=== PATIENT | male | born 1960 | race Caucasian/White ===

== ENCOUNTER 2017-02-15 17:12 | Inpatient (IN) | payer OTHER ==
[~2017-02-15] VITALS: Ht 177.8 cm; Wt 57.5 kg
--- NOTE | 2017-02-15 17:18 | PD ---
Physical Exam Date Seen by Provider: Feb 15, 2017 Time Seen by Provider: 17:16 Narrative 56- year old male presents with bladder cancer with mets to bones and hips. Patient is having chronic right hip pain to the point where he is unable to walk. Patient started radiation two weeks ago. Per roommate the patient has been vomiting and unable to keep anything down. He is awaiting bed placement. [facility] Medical Record Reviewed: Yes Supervised Visit with ALLYSSA: No Condition: Stable Tierney Benoit Feb 15, 2017 17:18
[2017-02-15 17:19] VITALS: BP 123/87; PULSE 117; RESP 21; TEMP 99.7; O2SAT 99
[2017-02-15 18:12] VITALS: BP 134/58; PULSE 87; RESP 16; O2SAT 100
[2017-02-15] MEDS ORDERED: SODIUM CHLOR 0.9% 1000 ML INJ 1,000 ML IV ONE (18:23)
[2017-02-15] MEDS ORDERED: SODIUM CHLOR 0.9% 1000 ML INJ 800 ML IV ONE (18:23)
[2017-02-15] MEDS ORDERED: HYDROmorphone HCL PF 1 MG/ML VIAL IV PUSH ONE (18:30)
--- NOTE | 2017-02-15 18:30 | PD ---
HPI Chief Complaint: Pain: Acute or Chronic Time Seen by Provider: 18:12 Travel History International Travel<30 days: No Contact w/Intl Traveler<30days: No Traveled to known affect area: No History of Present Illness HPI 56-year-old male with history of COPD, bladder cancer with metastases to bone, currently undergoing radiation therapy 5 days a week in [place], here for evaluation of pain. Patient is reporting right hip and lower back pain which is making it difficult for him to walk. He was noted to have an elevated temperature in triage. He has not yet received any chemotherapy. He denies cough or upper respiratory symptoms. Reports that he was receiving several prescription for pain medications, however these were recently discontinued by his radiation oncologist. [facility] Past Medical History Respiratory: Yes Social History Tobacco Use: Yes Allergies-Medications (Allergen,Severity, Reaction): Coded Allergies: No Known Allergies (Unverified , 02/15/17) Reported Meds & Prescriptions Reported Meds & Active Scripts Active No Active Prescriptions or Reported Medications Review of Systems Except as stated in HPI: all other systems reviewed are Neg Physical Exam Narrative GENERAL: Well-developed, thin, pleasant, comfortable, no apparent distress. SKIN: Focused skin assessment warm/dry. No rash. HEAD: Atraumatic. Normocephalic. EYES: Pupils equal and round. No scleral icterus. No injection or drainage. ENT: Mucous membranes pink and dry. NECK: Trachea midline. No JVD. CARDIOVASCULAR: Regular rate and rhythm. RESPIRATORY: No accessory muscle use. Clear to auscultation. Breath sounds equal bilaterally. GASTROINTESTINAL: Abdomen soft, non-tender, nondistended. MUSCULOSKELETAL: No obvious deformities. No clubbing. No cyanosis. No edema. NEUROLOGICAL: Awake and alert. No obvious cranial nerve deficits. Motor grossly within normal limits. Normal speech. PSYCHIATRIC: Appropriate mood and affect; insight and judgment normal. Data Data Last Documented VS Vital Signs Date Time Temp Pulse Resp B/P (MAP) Pulse Ox O2 Delivery O2 Flow Rate FiO2 02/15/17 19:29 97 Room Air 02/15/17 19:22 68 20 02/15/17 17:19 99.7 Orders Orders Complete Blood Count With Diff (02/15/17 18:23) Comprehensive Metabolic Panel (02/15/17 18:23) Lactic Acid Sepsis Protocol (02/15/17 18:23) Urinalysis - C+S If Indicated (02/15/17 18:23) Blood Culture (02/15/17 18:23) Chest, Single Ap (02/15/17 18:23) Ecg Monitoring (02/15/17 18:23) Iv Access Insert/Monitor (02/15/17 18:23) Oximetry (02/15/17 18:23) Sodium Chlor 0.9% 1000 Ml Inj (Ns 1000 M (02/15/17 18:23) Sodium Chlor 0.9% 1000 Ml Inj (Ns 1000 M (02/15/17 18:23) Hydromorphone Pf Inj (Dilaudid Pf Inj) (02/15/17 18:30) Pelvis, Ap Only (Routine) (02/15/17 ) Urine Culture (02/15/17 19:16) Ceftriaxone Inj (Rocephin Inj) (02/15/17 21:00) Admit Order (Ed Use Only) (02/15/17 21:23) Labs Laboratory Tests Test 02/15/17 19:16 White Blood Count 11.7 TH/MM3 Red Blood Count 3.47 MIL/MM3 Hemoglobin 10.2 GM/DL Hematocrit 32.8 % Mean Corpuscular Volume 94.4 FL Mean Corpuscular Hemoglobin 29.4 PG Mean Corpuscular Hemoglobin Concent 31.2 % Red Cell Distribution Width 17.8 % Platelet Count 240 TH/MM3 Mean Platelet Volume 9.0 FL Neutrophils (%) (Auto) 87.3 % Lymphocytes (%) (Auto) 6.9 % Monocytes (%) (Auto) 5.8 % Eosinophils (%) (Auto) 0.0 % Basophils (%) (Auto) 0.0 % Neutrophils # (Auto) 10.2 TH/MM3 Lymphocytes # (Auto) 0.8 TH/MM3 Monocytes # (Auto) 0.7 TH/MM3 Eosinophils # (Auto) 0.0 TH/MM3 Basophils # (Auto) 0.0 TH/MM3 CBC Comment AUTO DIFF Differential Total Cells Counted 100 Neutrophils % (Manual) 83 % Band Neutrophils % 5 % Lymphocytes % 8 % Monocytes % 4 % Neutrophils # (Manual) 10.3 TH/MM3 Differential Comment FINAL DIFF MANUAL Toxic Granulation 1+ Platelet Estimate NORMAL Platelet Morphology Comment NORMAL Tear Drop Cells 1+ Ovalocytes 1+ Keratocytes OCC Urine Color YELLOW Urine Turbidity CLEAR Urine pH 7.5 Urine Specific [place] 1.022 Urine Protein 30 mg/dL Urine Glucose (UA) NEG mg/dL Urine Ketones NEG mg/dL Urine Occult Blood MOD Urine Nitrite NEG Urine Bilirubin NEG Urine Urobilinogen LESS THAN 2.0 MG/DL Urine Leukocyte Esterase SMALL Urine RBC 27 /hpf Urine WBC 8 /hpf Urine Mucus FEW /lpf Microscopic Urinalysis Comment CATH-CULTURE IND Blood Urea Nitrogen 25 MG/DL Creatinine 0.70 MG/DL Random Glucose 106 MG/DL Total Protein 7.0 GM/DL Albumin 2.6 GM/DL Calcium Level 8.0 MG/DL Alkaline Phosphatase 115 U/L Aspartate Amino Transf (AST/SGOT) 60 U/L Alanine Aminotransferase (ALT/SGPT) 89 U/L Total Bilirubin 1.1 MG/DL Sodium Level 132 MEQ/L Potassium Level 4.3 MEQ/L Chloride Level 100 MEQ/L Carbon Dioxide Level 22.6 MEQ/L Anion Gap 9 MEQ/L Estimat Glomerular Filtration Rate 117 ML/MIN Lactic Acid Level 2.7 mmol/L MDM Medical Decision Making Medical Screen Exam Complete: Yes Emergency Medical Condition: Yes Differential Diagnosis Metastatic disease, sepsis, UTI, viral illness Narrative Course Vital signs show heart rate 117, blood pressure 123/87, pulse ox 99% on room air , oral temp of 99.7F. Heart rate improved to 68 after 2 L normal saline IV. CBC shows WBC 11.7, hemoglobin 10.2, hematocrit 32.8, platelets 240, neutrophils 87%, band neutrophils 5%. CMP is remarkable for sodium 132, AST 60, ALT 89. Lactic acid is 2.7. UA is suggestive of UTI. Chest x-ray: No evidence of acute cardio pulmonary disease. Pelvis x-ray: Radiographic appearance of the bony pelvis within normal limits. Patient made aware of all findings. He will be admitted for further treatment and evaluation of sepsis, UTI. Case discussed with hospitalist Dr Rudd who will admit the patient to her service. Diagnosis Primary Impression: Sepsis Qualified Codes: A41.9 - Sepsis, unspecified organism Additional Impression: UTI (urinary tract infection) Qualified Codes: N39.0 - Urinary tract infection, site not specified; R31.9 - Hematuria, unspecified Scripts No Active Prescriptions or Reported Meds Condition: Jeremy Renner MD Feb 15, 2017 18:30
[2017-02-15 18:48] VITALS: RESP 18; O2SAT 99
--- NOTE | 2017-02-15 18:52 | RADRPT ---
EXAM DATE/TIME: 02/15/2017 18:25 [facility] COMPARISON: No previous studies available for comparison. INDICATIONS : Right sided pelvic pain with no known injury MEDICAL HISTORY : Metastatic bladder cancer SURGICAL HISTORY : None. ENCOUNTER: Initial ACUITY: 1 day PAIN SCORE: 10/10 LOCATION: Right pelvis and hip FINDINGS: A single frontal view of the pelvis demonstrates no evidence of fracture. The bony pelvic ring is in tact. Bony mineralization is normal. The soft tissues are intact. No lytic or sclerotic lesions see n. CONCLUSION: Radiographic appearance of the bony pelvis within normal limits. Chaka Hearn MD on February 15, 2017 at 18:49 Board Certified Radiologist. This report was verified electronically.
--- NOTE | 2017-02-15 19:03 | RADRPT ---
EXAM DATE/TIME: 02/15/2017 18:27 [facility] COMPARISON: No previous studies available for comparison. INDICATIONS : Fever starting today MEDICAL HISTORY : Chronic obstructive pulmonary disease. Metastatic bladder cancer SURGICAL HISTORY : None. ENCOUNTER: Initial ACUITY: 1 day PAIN SCORE: 0/10 LOCATION: Bilateral chest FINDINGS: A single view of the chest demonstrates the lungs to be symmetrically aerated without evidence of mas s, infiltrate or effusion. The cardiomediastinal contours are unremarkable. Osseous structures are intact. CONCLUSION: No evidence of acute cardiopulmonary disease. Chaka Hearn MD on February 15, 2017 at 19:01 Board Certified Radiologist. This report was verified electronically.
[2017-02-15 19:22] VITALS: BP 146/74; PULSE 68; RESP 20; O2SAT 98
[2017-02-15 19:29] VITALS: O2SAT 97
[2017-02-15 19:43] LABS: AUTOMATED NEUTROPHIL # 10.2 TH/MM3 (1.8-7.7); HEMATOCRIT 32.8 % (39.0-51.0); LYMPH % 6.9 % (9.0-44.0); LYMPHOCYTE # 0.8 TH/MM3 (1.0-4.8); MEAN CELL VOLUME 94.4 FL (80.0-100.0); MEAN CORPUSCULAR HEMOGLOBIN 29.4 PG (27.0-34.0); MEAN CORPUSCULAR HGB CONC 31.2 % (32.0-36.0); MONO % 5.8 % (0.0-8.0); NEUT % 87.3 % (16.0-70.0); PLATELET COUNT 240 TH/MM3 (150-450); RED BLOOD COUNT 3.47 MIL/MM3 (4.50-5.90); RED CELL DISTRIBUTION WIDTH 17.8 % (11.6-17.2); WHITE BLOOD COUNT 11.7 TH/MM3 (4.0-11.0)
[2017-02-15 19:59] LABS: HEMO FLAGS AUTO DIFF
[2017-02-15 20:03] LABS: ANION GAP 9 MEQ/L (5-15); AST (GOT) 60 U/L (15-37); BICARBONATE 22.6 MEQ/L (21.0-32.0); BLOOD UREA NITROGEN 25 MG/DL (7-18); CHLORIDE 100 MEQ/L (98-107); GLOMERULAR FILTRATION RATE 117 ML/MIN (>89); POTASSIUM 4.3 MEQ/L (3.5-5.1); SODIUM (NA) 132 MEQ/L (136-145)
[2017-02-15 20:04] LABS: ALT (GPT) 89 U/L (12-78)
[2017-02-15 20:06] LABS: ALKALINE PHOSPHATASE 115 U/L (45-117); TOTAL BILIRUBIN ADULT 1.1 MG/DL (0.2-1.0)
[2017-02-15 20:18] LABS: BLOOD, URINE MOD (NEG); GLUCOSE,URINE NEG (NEG); KETONE, URINE NEG (NEG); MUCUS URINE FEW /lpf (OCC); NITRITE,URINE NEG (NEG); PH, URINE 7.5 (5.0-8.5); URINE COLOR YELLOW (YELLW/STRAW)
[2017-02-15 20:24] LABS: COMMENT (UR) CATH-CULTURE IND; CULTURE IF INDICATED CATH CULTURE IND
[2017-02-15 20:50] LABS: BANDS 5 % (0-6); NEUTROPHIL # MANUAL DIFF 10.3 TH/MM3 (1.8-7.7); PLATELET ESTIMATE SMEAR NORMAL (NORMAL); PLATELET MORPHOLOGY NORMAL (NORMAL); POLYS (SEG NEUTROPHILS) 83 % (16-70); WBC DIFF SAMPLE 100
[2017-02-15 20:52] LABS: KERATOCYTES OCC (NORMAL); SCAN/DIFF FINAL DIFF MANUAL; TOXIC GRANULATION 1+ (NORMAL)
[2017-02-15 20:55] LABS: OVALOCYTES 1+ (NORMAL); TEARDROP RBCS 1+ (NORMAL)
[2017-02-15] MEDS ORDERED: cefTRIAXone INJ 1,000 MG in SODIUM CHLORIDE 0.9% INJ 100 ML IV ONE (21:00)
[2017-02-15 21:38] LABS: LACTIC ACID GHOST NOT REPORTABLE
[2017-02-15] MEDS ORDERED: BISACODYL 10 MG SUPP RECTAL PRN (21:45)
[2017-02-15] MEDS ORDERED: LACTULOSE SYRUP 20 GM/30 ML CUP PO PRN (21:45)
[2017-02-15] MEDS ORDERED: SENNOSIDES 8.6 MG TAB PO PRN (21:45)
[2017-02-15] MEDS ORDERED: ACETAMINOPHEN 325 MG TAB PO PRN (21:45)
[2017-02-15] MEDS ORDERED: ONDANSETRON HCL 4 MG/2 ML VIAL IVP PRN (21:45)
[2017-02-15] MEDS ORDERED: SODIUM CHLORIDE 0.9% FLUSH 10 ML FLUSH IV FLUSH PRN (21:45)
[2017-02-15] MEDS ORDERED: MAGNESIUM HYDROXIDE SUSP 30 ML CUP PO PRN (21:45)
--- NOTE | 2017-02-15 21:48 | HHI.HP ---
[facility] No Primary Care Physician Admission Diagnosis Sepsis, UTI Diagnoses: (1) Sepsis Diagnosis: Principal (2) UTI (urinary tract infection) Diagnosis: Principal (3) Bladder cancer Diagnosis: Principal (4) Hip pain, right Diagnosis: Principal (5) Tobacco abuse Diagnosis: Principal Travel History International Travel<30 Days: No Contact w/Intl Traveler <30 Da: No Traveled to Known Affected Are: No History of Present Illness This is a 56-year-old male with PMH of Metastatic Bladder CA, Tobacco Abuse and COPD who presented to the ER with complaints of hip pain in addition to persistent episodes of nausea and vomiting. Pt recently started Radiation Therapy 2wks ago, states symptoms have been getting progressively worse since then. Reports subjective fevers, chills. On arrival, BP 123/87, HR 117, O2 sat 99% on RA, Temp 99.7. WBC 11.7. BUN 25. Lactic Acid 2.7. UA positive for UTI. CXR with no acute findings. Pelvis X-ray normal. S/p Blood/Urine Cultures and IV Rocephin in ER. Review of Systems Except as stated in HPI: all other systems reviewed are Neg ROS: 14 point review of systems otherwise negative. Past Family Social History Past Medical History PMH: Metastatic Bladder CA, Tobacco Abuse and COPD Past Surgical History PAST SURGICAL HISTORY: Hernia Repair, Bladder Surgery, Jaw Surgery Allergies: Coded Allergies: No Known Allergies (Unverified , 02/15/17) Family History PAST FAMILY HISTORY: Reviewed. No h/o DM or CAD Social History PAST SOCIAL HISTORY: Negative for alcohol or drugs. Smokes 1ppd. Physical Exam Vital Signs Vital Signs Date Time Temp Pulse Resp B/P (MAP) Pulse Ox O2 Delivery O2 Flow Rate FiO2 02/15/17 19:29 97 Room Air 02/15/17 19:22 68 20 146/74 (98) 98 Room Air 02/15/17 18:49 74 18 02/15/17 18:48 18 99 Room Air 02/15/17 18:12 87 16 134/58 (83) 100 Room Air 02/15/17 17:19 99.7 117 21 123/87 (72) 99 Physical Exam PE: GENERAL: Middle-aged male in no acute distress. HEENT: PERRLA, EOMI. No scleral icterus or conjunctival pallor. No lid lag or facial droop. CARDIOVASCULAR: Regular rate and rhythm. No obvious murmurs to auscultation. No chest tenderness to palpation. RESPIRATORY: No obvious rhonchi or wheezing. Clear to auscultation. Breath sounds equal bilaterally. GASTROINTESTINAL: Abdomen soft, non-tender, nondistended. BS normal. MUSCULOSKELETAL: Extremities without clubbing, cyanosis, or edema. No obvious deformities. NEUROLOGICAL: Awake, alert and oriented x4. No focal neurologic deficits. Moving both upper and lower extremities spontaneously. Laboratory Laboratory Tests Test 02/15/17 19:16 White Blood Count 11.7 Red Blood Count 3.47 Hemoglobin 10.2 Hematocrit 32.8 Mean Corpuscular Volume 94.4 Mean Corpuscular Hemoglobin 29.4 Mean Corpuscular Hemoglobin Concent 31.2 Red Cell Distribution Width 17.8 Platelet Count 240 Mean Platelet Volume 9.0 Neutrophils (%) (Auto) 87.3 Lymphocytes (%) (Auto) 6.9 Monocytes (%) (Auto) 5.8 Eosinophils (%) (Auto) 0.0 Basophils (%) (Auto) 0.0 Neutrophils # (Auto) 10.2 Lymphocytes # (Auto) 0.8 Monocytes # (Auto) 0.7 Eosinophils # (Auto) 0.0 Basophils # (Auto) 0.0 CBC Comment AUTO DIFF Differential Total Cells Counted 100 Neutrophils % (Manual) 83 Band Neutrophils % 5 Lymphocytes % 8 Monocytes % 4 Neutrophils # (Manual) 10.3 Differential Comment FINAL DIFF MANUAL Toxic Granulation 1+ Platelet Estimate NORMAL Platelet Morphology Comment NORMAL Tear Drop Cells 1+ Ovalocytes 1+ Keratocytes OCC Urine Color YELLOW Urine Turbidity CLEAR Urine pH 7.5 Urine Specific [place] 1.022 Urine Protein 30 Urine Glucose (UA) NEG Urine Ketones NEG Urine Occult Blood MOD Urine Nitrite NEG Urine Bilirubin NEG Urine Urobilinogen LESS THAN 2.0 Urine Leukocyte Esterase SMALL Urine RBC 27 Urine WBC 8 Urine Mucus FEW Microscopic Urinalysis Comment CATH-CULTURE IND Blood Urea Nitrogen 25 Creatinine 0.70 Random Glucose 106 Total Protein 7.0 Albumin 2.6 Calcium Level 8.0 Alkaline Phosphatase 115 Aspartate Amino Transf (AST/SGOT) 60 Alanine Aminotransferase (ALT/SGPT) 89 Total Bilirubin 1.1 Sodium Level 132 Potassium Level 4.3 Chloride Level 100 Carbon Dioxide Level 22.6 Anion Gap 9 Estimat Glomerular Filtration Rate 117 Lactic Acid Level 2.7 Date/Time Source Procedure Growth Status 02/15/17 19:20 Blood Peripheral Aerobic Blood Culture Pending Received 02/15/17 19:20 Blood Peripheral Anaerobic Blood Culture Pending Received 02/15/17 19:16 Urine Clean Catch Urine Culture Pending Received Result Diagram: 02/15/17191502/15/171915 Caprini VTE Risk Assessment Caprini VTE Risk Assessment: Mod/High Risk (score >= 2) Caprini Risk Assessment Model Point Value = 1 Point Value = 2 Point Value = 3 Point Value = 5 Age 41-60 Minor surgery BMI > 25 kg/m2 Swollen legs Varicose veins or History of unexplained or recurrent spontaneous Oral contraceptives or hormone replacement Sepsis (< 1 month) Serious lung disease, including pneumonia (< 1 month) Abnormal pulmonary function Acute myocardial infarction Congestive heart failure (< 1 month) History of inflammatory bowel disease Medical patient at bed rest Age 61-74 Arthroscopic surgery Major open surgery (> 45 min) Laparoscopic surgery (> 45 min) Malignancy Confined to bed (> 72 hours) Immobilizing plaster cast Central venous access Age >= 75 History of VTE Family history of VTE Factor V Leiden Prothrombin [id number] Lupus anticoagulant Anticardiolipin antibodies Elevated serum homocysteine Heparin-induced thrombocytopenia Other congenital or acquired thrombophilia Stroke (< 1 month) Elective arthroplasty Hip, pelvis, or leg fracture Acute spinal cord injury (< 1 month) Prophylaxis Regimen Total Risk Factor Score Risk Level Prophylaxis Regimen 0-1 Low Early ambulation 2 Moderate Order ONE of the following: *Sequential Compression Device (SCD) *Heparin 5000 units SQ BID 3-4 Higher Order ONE of the following medications: *Heparin 5000 units SQ TID *Enoxaparin/Lovenox 40 mg SQ daily (WT < 150 kg, CrCl > 30 mL/min) *Enoxaparin/Lovenox 30 mg SQ daily (WT < 150 kg, CrCl > 10-29 mL/min) *Enoxaparin/Lovenox 30 mg SQ BID (WT < 150 kg, CrCl > 30 mL/min) AND/OR *Sequential Compression Device (SCD) 5 or more Highest Order ONE of the following medications: *Heparin 5000 units SQ TID (Preferred with Epidurals) *Enoxaparin/Lovenox 40 mg SQ daily (WT < 150 kg, CrCl > 30 mL/min) *Enoxaparin/Lovenox 30 mg SQ daily (WT < 150 kg, CrCl > 10-29 mL/min) *Enoxaparin/Lovenox 30 mg SQ BID (WT < 150 kg, CrCl > 30 mL/min) AND *Sequential Compression Device (SCD) Assessment and Plan Problem List: (1) Sepsis ICD Code: A41.9 - Sepsis, unspecified organism Status: Acute (2) UTI (urinary tract infection) ICD Code: N39.0 - Urinary tract infection, site not specified Status: Acute (3) Bladder cancer ICD Code: C67.9 - Malignant neoplasm of bladder, unspecified (4) Hip pain, right ICD Code: M25.551 - Pain in right hip (5) Tobacco abuse ICD Code: Z72.0 - Tobacco use Assessment and Plan A/P: 1. Sepsis: Temp 99.7, HR 112, Lactic Acid 2.7, WBC 11.7, Source-UTI. S/p Blood/Urine Cultures, IV Rocephin in ER. Follow up cultures, continue IV Abx. Repeat Lactate 1.4. CXR w/ no acute findings, images reviewed by me. 2. UTI: U/a w/ UTI. Follow up cultures, continue w/ treatment as above. 3. Bladder CA: currently undergoing Radiation in [place], started 2wks ago , progressive weakness/deconditioning. Follow up w/ Oncology as scheduled. 4. Right Hip Pain: progressive Right Hip Pain x2 wks, roommate reports decreased mobility due to pain. X-ray w/ no acute findings, images reviewed by me. Analgesics as needed, PT for eval/tx. 5. Tobacco Abuse: Pt counselled. Ativan/NicoDerm prn if needed. 6. DVT Prophylaxis: SCD/Teds. 7. Social work for d/c planning as needed. 8. Case discussed w/ ER physician at length. Physician Certification 2 Midnight Certification Type: Admission for Inpatient Services Order for Inpatient Services The services are ordered in accordance with Medicare regulations or non- Medicare payer requirements, as applicable. In the case of services not specified as inpatient-only, they are appropriately provided as inpatient services in accordance with the 2-midnight benchmark. Estimated LOS (days): 2 days is the estimated time the patient will need to remain in the hospital, assuming treatment plan goals are met and no additional complications. Post-Hospital Plan: Not yet determined Problem Qualifiers (1) Sepsis: Qualified Codes: A41.9 - Sepsis, unspecified organism (2) UTI (urinary tract infection): Qualified Codes: N39.0 - Urinary tract infection, site not specified; R31.9 - Hematuria, unspecified Tiffany Rudd MD Feb 15, 2017 21:48
[2017-02-15 21:53] VITALS: BP 146/71; PULSE 66; RESP 20; O2SAT 97
[2017-02-15] MEDS: SODIUM CHLOR 0.9% 1000 ML INJ 1,000 ML IV SCH (23:31)
[2017-02-16] VITALS (8 sets, daily range): BP systolic 124–141; BP diastolic 64–79; PULSE 67–81; RESP 17–20; TEMP 96.3–98.6; O2SAT 96–99
[2017-02-16] MEDS ORDERED: LORazepam 0.5 MG TAB PO ONE (03:00)
[2017-02-16 07:01] LABS: AUTOMATED NEUTROPHIL # 7.9 TH/MM3 (1.8-7.7); HEMATOCRIT 30.2 % (39.0-51.0); HEMO FLAGS DIFF FINAL; LYMPH % 7.3 % (9.0-44.0); LYMPHOCYTE # 0.7 TH/MM3 (1.0-4.8); MEAN CORPUSCULAR HEMOGLOBIN 30.1 PG (27.0-34.0); MEAN CORPUSCULAR HGB CONC 31.4 % (32.0-36.0); NEUT % 88.7 % (16.0-70.0); PLATELET COUNT 214 TH/MM3 (150-450); RED BLOOD COUNT 3.15 MIL/MM3 (4.50-5.90); RED CELL DISTRIBUTION WIDTH 18.3 % (11.6-17.2); WHITE BLOOD COUNT 8.9 TH/MM3 (4.0-11.0)
[2017-02-16 07:09] LABS: ALT (GPT) 83 U/L (12-78); ANION GAP 11 MEQ/L (5-15); AST (GOT) 64 U/L (15-37); BLOOD UREA NITROGEN 18 MG/DL (7-18); CHLORIDE 102 MEQ/L (98-107); GLOMERULAR FILTRATION RATE 155 ML/MIN (>89); SODIUM (NA) 135 MEQ/L (136-145)
[2017-02-16 07:11] LABS: ALKALINE PHOSPHATASE 108 U/L (45-117)
[2017-02-16] MEDS: SODIUM CHLORIDE 0.9% FLUSH 10 ML FLUSH IV FLUSH SCH ×2 (09:00→19:57)
[2017-02-16] MEDS: DOCUSATE SODIUM 50 MG/SENNA 8.6 MG TAB PO SCH ×2 (09:00→19:55)
--- NOTE | 2017-02-16 09:06 | HHI.PR ---
Subjective Remarks This is a pleasant 56 y/o male with Metastatic Bladder Cancer,. Tobacco abuse, COPD who came to ER wtih Hip pain in addition to persistent episodes of nausea and Vomit, two weeks ago started Radiation therapy, reported subjective fever and chills, Lactic Acid 2.7. UA positive for UTI. CXR with no acute findings. Pelvis X-ray normal. S/p Blood/Urine Cultures and IV Rocephin in ER. 02/16: Seen in his bedroom and improving condition, but states he takes Percocet at home for pain and will need to continue his home medicines, encourage ambulation to avoid complications, also he states has Occasional hematuria. Objective Vital Signs Date Time Temp Pulse Resp B/P (MAP) Pulse Ox O2 Delivery O2 Flow Rate FiO2 02/16/17 04:35 97.8 68 17 124/64 (84) 99 02/16/17 02:45 Room Air 02/16/17 00:30 98.5 74 17 130/79 (96) 97 02/15/17 21:53 66 20 146/71 (96) 97 Room Air 02/15/17 19:29 97 Room Air 02/15/17 19:22 68 20 146/74 (98) 98 Room Air 02/15/17 18:49 74 18 02/15/17 18:48 18 99 Room Air 02/15/17 18:12 87 16 134/58 (83) 100 Room Air 02/15/17 17:19 99.7 117 21 123/87 (99) 99 I/O 02/15/17 02/15/17 02/15/17 02/16/17 02/16/17 02/16/17 07:00 15:00 23:00 07:00 15:00 23:00 Intake Total 2100 ml 240 ml Output Total 80 ml 500 ml Balance 2020 ml -260 ml Intake Oral 240 ml IV Total 2100 ml Output Urine Total 80 ml 500 ml # Voids 1 2 # Bowel Movements 1 Result Diagram: 02/16/17 0558 02/16/17 0558 Imaging Last Impressions Chest X-Ray 02/15/17 182 Signed Impressions: Service Date/Time: Wednesday, February 15, 2017 18:27 - CONCLUSION: No evidence of acute cardiopulmonary disease. Chaka Hearn MD Pelvis X-Ray 02/15/17 0000 Signed Impressions: Service Date/Time: Wednesday, February 15, 2017 18:25 - CONCLUSION: Radiographic appearance of the bony pelvis within normal limits. Chaka Hearn MD Procedures None Other Results Laboratory Tests Test 02/15/17 19:16 02/15/17 22:39 02/16/17 05:58 Differential Total Cells Counted 100 Neutrophils % (Manual) 83 % Band Neutrophils % 5 % Lymphocytes % 8 % Monocytes % 4 % Neutrophils # (Manual) 10.3 TH/MM3 Toxic Granulation 1+ Platelet Estimate NORMAL Platelet Morphology Comment NORMAL Tear Drop Cells 1+ Ovalocytes 1+ Keratocytes OCC Urine Color YELLOW Urine Turbidity CLEAR Urine pH 7.5 Urine Specific [place] 1.022 Urine Protein 30 mg/dL Urine Glucose (UA) NEG mg/dL Urine Ketones NEG mg/dL Urine Occult Blood MOD Urine Nitrite NEG Urine Bilirubin NEG Urine Urobilinogen LESS THAN 2.0 MG/DL Urine Leukocyte Esterase SMALL Urine RBC 27 /hpf Urine WBC 8 /hpf Urine Mucus FEW /lpf Microscopic Urinalysis Comment CATH-CULTURE IND Lactic Acid Level 1.4 mmol/L White Blood Count 8.9 TH/MM3 Red Blood Count 3.15 MIL/MM3 Hemoglobin 9.5 GM/DL Hematocrit 30.2 % Mean Corpuscular Volume 96.0 FL Mean Corpuscular Hemoglobin 30.1 PG Mean Corpuscular Hemoglobin Concent 31.4 % Red Cell Distribution Width 18.3 % Platelet Count 214 TH/MM3 Mean Platelet Volume 8.7 FL Neutrophils (%) (Auto) 88.7 % Lymphocytes (%) (Auto) 7.3 % Monocytes (%) (Auto) 4.0 % Eosinophils (%) (Auto) 0.0 % Basophils (%) (Auto) 0.0 % Neutrophils # (Auto) 7.9 TH/MM3 Lymphocytes # (Auto) 0.7 TH/MM3 Monocytes # (Auto) 0.4 TH/MM3 Eosinophils # (Auto) 0.0 TH/MM3 Basophils # (Auto) 0.0 TH/MM3 CBC Comment DIFF FINAL Differential Comment Blood Urea Nitrogen 18 MG/DL Creatinine 0.55 MG/DL Random Glucose 98 MG/DL Total Protein 6.6 GM/DL Albumin 2.3 GM/DL Calcium Level 7.6 MG/DL Alkaline Phosphatase 108 U/L Aspartate Amino Transf (AST/SGOT) 64 U/L Alanine Aminotransferase (ALT/SGPT) 83 U/L Total Bilirubin 1.0 MG/DL Sodium Level 135 MEQ/L Potassium Level 4.0 MEQ/L Chloride Level 102 MEQ/L Carbon Dioxide Level 22.0 MEQ/L Anion Gap 11 MEQ/L Estimat Glomerular Filtration Rate 155 ML/MIN Objective Remarks PE: Alert and oriented x 3. GENERAL: Middle-aged male in no acute distress. HEENT: PERRLA, EOMI. No scleral icterus or conjunctival pallor. No lid lag or facial droop. CARDIOVASCULAR: Regular rate and rhythm. No obvious murmurs to auscultation. No chest tenderness to palpation. RESPIRATORY: No obvious rhonchi or wheezing. Clear to auscultation. Breath sounds equal bilaterally. GASTROINTESTINAL: Abdomen soft, non-tender, nondistended. BS normal. MUSCULOSKELETAL: Extremities without clubbing, cyanosis, or edema. No obvious deformities. NEUROLOGICAL: Awake, alert and oriented x4. No focal neurologic deficits. Moving both upper and lower extremities spontaneously. Medications and IVs Current Medications Medications (Trade) Dose Ordered Sig/Leobardo Route Start Time Stop Time Status Last Admin Ceftriaxone Sodium 1000 mg/ Sodium Chloride 100 ml @ 200 mls/hr Q24H IV 02/16/17 21:00 Sodium Chloride 1,000 ml @ 100 mls/hr Q10H IV 02/15/17 22:00 02/15/17 23:31 (NS Flush) 2 ml UNSCH PRN IV FLUSH 02/15/17 21:45 (NS Flush) 2 ml BID IV FLUSH 02/16/17 09:00 (Zofran Inj) 4 mg Q6H PRN IVP 02/15/17 21:45 (Tylenol) 650 mg Q6H PRN PO 02/15/17 21:45 (Tebbetts 5-325 Mg) 1 tab Q4H PRN PO 02/15/17 21:45 (Morphine Inj) 2 mg Q3H PRN IV 02/15/17 21:45 (Lizz-Colace) 1 tab BID PO 02/16/17 09:00 (Milk Of Magnesia Liq) 30 ml Q12H PRN PO 02/15/17 21:45 (Senokot) 17.2 mg Q12H PRN PO 02/15/17 21:45 (Dulcolax Supp) 10 mg DAILY PRN RECTAL 02/15/17 21:45 (Lactulose Liq) 30 ml DAILY PRN PO 02/15/17 21:45 A/P Assessment and Plan 1. Sepsis: Temp 99.7, HR 112, Lactic Acid 2.7, WBC 11.7, Source-UTI. S/p Blood/Urine Cultures, IV Rocephin in ER. Follow up cultures, continue IV Abx. Repeat Lactate 1.4. CXR w/ no acute findings. Leukocytosis improving from 11.7 to 8.9 2. UTI: U/a w/ UTI. Follow up cultures, continue w/ treatment as above. 3. Bladder CA: currently undergoing Radiation in [place], started 2wks ago , progressive weakness/deconditioning. Follow up w/ Oncology as scheduled. 4. Right Hip Pain: progressive Right Hip Pain x2 wks, roommate reports decreased mobility due to pain. X-ray w/ no acute findings, images reviewed by me. Analgesics as needed, PT for eval/tx. 5. Tobacco Abuse: Pt counselled. Ativan/NicoDerm prn if needed. DVT Prophylaxis: SCD/Teds. Social work for d/c planning as needed. Adjusted Pain medicine added Diet with Protein shakes. follow laboratory in am tomorrow for discharge. discussed with nurse Miss Brennan and with Patient all questions answered to the best of my abilities. Attending Attestation Expected in one to two days. Morris Watson MD Feb 16, 2017 09:06
[2017-02-16] MEDS: SODIUM CHLOR 0.9% 1000 ML INJ 1,000 ML IV SCH ×2 (09:21→19:58)
[2017-02-16] MEDS ORDERED: oxyCODONE/ACETAMINOPHEN 5 MG/325 MG TAB PO PRN (10:30)
[2017-02-16] MEDS: ACETAMINOPHEN/HYDROcodone 325 MG/5 MG TAB PO PRN ×2 (13:25→18:27)
[2017-02-16] MEDS ORDERED: LORazepam 1 MG TAB PO PRN (13:45)
[2017-02-16] MEDS: MORPHINE SULFATE 4 MG/ML INJ IV PRN ×3 (14:19→23:52)
[2017-02-16] MEDS ORDERED: cefTRIAXone INJ 1,000 MG in SODIUM CHLORIDE 0.9% INJ 100 ML IV SCH (21:00)
[2017-02-17 03:42] VITALS: BP 122/62; PULSE 65; RESP 19; TEMP 96.6; O2SAT 95
[2017-02-17] MEDS: MORPHINE SULFATE 4 MG/ML INJ IV PRN ×2 (04:01→08:23)
[2017-02-17 07:52] VITALS: BP 136/64; PULSE 79; RESP 18; TEMP 98.8; O2SAT 99
[2017-02-17] MEDS: SODIUM CHLORIDE 0.9% FLUSH 10 ML FLUSH IV FLUSH SCH (08:40)
[2017-02-17] MEDS: SODIUM CHLOR 0.9% 1000 ML INJ 1,000 ML IV SCH (08:40)
[2017-02-17] MEDS: DOCUSATE SODIUM 50 MG/SENNA 8.6 MG TAB PO SCH (08:40)
--- NOTE | 2017-02-17 09:33 | HHI.PR ---
Subjective Remarks This is a pleasant 56 y/o male with Metastatic Bladder Cancer,. Tobacco abuse, COPD who came to ER wtih Hip pain in addition to persistent episodes of nausea and Vomit, two weeks ago started Radiation therapy, reported subjective fever and chills, Lactic Acid 2.7. UA positive for UTI. CXR with no acute findings. Pelvis X-ray normal. S/p Blood/Urine Cultures and IV Rocephin in ER. 02/16: Seen in his bedroom and improving condition, but states he takes Percocet at home for pain and will need to continue his home medicines, encourage ambulation to avoid complications, also he states has Occasional hematuria. 02/17: Seen in his bedroom in the presence of his Son Mr. Arturo Nicholson he is stable has to go to his Primary Radiation specialist tomorrow morning he states when he goes for this kind of treatment he feels bad and is planning to hold on his therapy for a while until he gets better, his urine culture was negative, will not give more antibiotics by now, recommended to continue hydration at home and good nutrition and stop smoking he continue smoking one pack of cigarettes daily. no nausea vomit or diarrhea, his Overall Prognosis is Poor. Objective Vital Signs Date Time Temp Pulse Resp B/P (MAP) Pulse Ox O2 Delivery O2 Flow Rate FiO2 02/17/17 07:52 98.8 79 18 136/64 (88) 99 02/17/17 03:42 96.6 65 19 122/62 (82) 95 02/16/17 23:45 97.3 79 18 139/73 (95) 96 02/16/17 19:27 18 02/16/17 19:11 97.9 77 18 134/76 (95) 97 02/16/17 17:00 96.3 67 20 141/66 (91) 97 02/16/17 12:00 98.2 81 20 127/73 (91) 98 I/O 02/16/17 02/16/17 02/16/17 02/17/17 02/17/17 02/17/17 07:00 15:00 23:00 07:00 15:00 23:00 Intake Total 240 ml 1133 ml 1373 ml 904 ml Output Total 500 ml 450 ml Balance -260 ml 1133 ml 1373 ml 454 ml Intake Oral 240 ml 240 ml 480 ml 240 ml IV Total 893 ml 893 ml 664 ml Output Urine Total 500 ml 450 ml # Voids 2 6 4 1 # Bowel Movements 1 10 0 3 Result Diagram: 02/16/17 0558 02/16/17 0558 Imaging Last Impressions Chest X-Ray 02/15/17 1823 Signed Impressions: Service Date/Time: Wednesday, February 15, 2017 18:27 - CONCLUSION: No evidence of acute cardiopulmonary disease. Chaka Hearn MD Pelvis X-Ray 02/15/17 0000 Signed Impressions: Service Date/Time: Wednesday, February 15, 2017 18:25 - CONCLUSION: Radiographic appearance of the bony pelvis within normal limits. Chaka Hearn MD Procedures None Other Results Laboratory Tests Test 02/15/17 19:16 02/15/17 22:39 02/16/17 05:58 Differential Total Cells Counted 100 Neutrophils % (Manual) 83 % Band Neutrophils % 5 % Lymphocytes % 8 % Monocytes % 4 % Neutrophils # (Manual) 10.3 TH/MM3 Toxic Granulation 1+ Platelet Estimate NORMAL Platelet Morphology Comment NORMAL Tear Drop Cells 1+ Ovalocytes 1+ Keratocytes OCC Urine Color YELLOW Urine Turbidity CLEAR Urine pH 7.5 Urine Specific [place] 1.022 Urine Protein 30 mg/dL Urine Glucose (UA) NEG mg/dL Urine Ketones NEG mg/dL Urine Occult Blood MOD Urine Nitrite NEG Urine Bilirubin NEG Urine Urobilinogen LESS THAN 2.0 MG/DL Urine Leukocyte Esterase SMALL Urine RBC 27 /hpf Urine WBC 8 /hpf Urine Mucus FEW /lpf Microscopic Urinalysis Comment CATH-CULTURE IND Lactic Acid Level 1.4 mmol/L White Blood Count 8.9 TH/MM3 Red Blood Count 3.15 MIL/MM3 Hemoglobin 9.5 GM/DL Hematocrit 30.2 % Mean Corpuscular Volume 96.0 FL Mean Corpuscular Hemoglobin 30.1 PG Mean Corpuscular Hemoglobin Concent 31.4 % Red Cell Distribution Width 18.3 % Platelet Count 214 TH/MM3 Mean Platelet Volume 8.7 FL Neutrophils (%) (Auto) 88.7 % Lymphocytes (%) (Auto) 7.3 % Monocytes (%) (Auto) 4.0 % Eosinophils (%) (Auto) 0.0 % Basophils (%) (Auto) 0.0 % Neutrophils # (Auto) 7.9 TH/MM3 Lymphocytes # (Auto) 0.7 TH/MM3 Monocytes # (Auto) 0.4 TH/MM3 Eosinophils # (Auto) 0.0 TH/MM3 Basophils # (Auto) 0.0 TH/MM3 CBC Comment DIFF FINAL Differential Comment Blood Urea Nitrogen 18 MG/DL Creatinine 0.55 MG/DL Random Glucose 98 MG/DL Total Protein 6.6 GM/DL Albumin 2.3 GM/DL Calcium Level 7.6 MG/DL Alkaline Phosphatase 108 U/L Aspartate Amino Transf (AST/SGOT) 64 U/L Alanine Aminotransferase (ALT/SGPT) 83 U/L Total Bilirubin 1.0 MG/DL Sodium Level 135 MEQ/L Potassium Level 4.0 MEQ/L Chloride Level 102 MEQ/L Carbon Dioxide Level 22.0 MEQ/L Anion Gap 11 MEQ/L Estimat Glomerular Filtration Rate 155 ML/MIN Objective Remarks PE: Alert and oriented x 3. GENERAL: Middle-aged male in no acute distress. HEENT: PERRLA, EOMI. No scleral icterus or conjunctival pallor. No lid lag or facial droop. CARDIOVASCULAR: Regular rate and rhythm. No obvious murmurs to auscultation. No chest tenderness to palpation. RESPIRATORY: No obvious rhonchi or wheezing. Clear to auscultation. Breath sounds equal bilaterally. GASTROINTESTINAL: Abdomen soft, non-tender, nondistended. BS normal. MUSCULOSKELETAL: Extremities without clubbing, cyanosis, or edema. No obvious deformities. NEUROLOGICAL: Awake, alert and oriented x4. No focal neurologic deficits. Moving both upper and lower extremities spontaneously. Medications and IVs Current Medications Medications (Trade) Dose Ordered Sig/Leobardo Route Start Time Stop Time Status Last Admin Ceftriaxone Sodium 1000 mg/ Sodium Chloride 100 ml @ 200 mls/hr Q24H IV 02/16/17 21:00 02/16/17 19:53 Sodium Chloride 1,000 ml @ 83 mls/hr Q12H3M IV 02/15/17 22:00 02/17/17 08:40 (NS Flush) 2 ml UNSCH PRN IV FLUSH 02/15/17 21:45 (NS Flush) 2 ml BID IV FLUSH 02/16/17 09:00 (Zofran Inj) 4 mg Q6H PRN IVP 02/15/17 21:45 02/16/17 18:27 (Tylenol) 650 mg Q6H PRN PO 02/15/17 21:45 ([place] 5-325 Mg) 1 tab Q4H PRN PO 02/15/17 21:45 02/16/17 18:27 (Morphine Inj) 2 mg Q3H PRN IV 02/15/17 21:45 02/17/17 08:23 (Lizz-Colace) 1 tab BID PO 02/16/17 09:00 (Milk Of Magnesia Liq) 30 ml Q12H PRN PO 02/15/17 21:45 (Senokot) 17.2 mg Q12H PRN PO 02/15/17 21:45 (Dulcolax Supp) 10 mg DAILY PRN RECTAL 02/15/17 21:45 (Lactulose Liq) 30 ml DAILY PRN PO 02/15/17 21:45 (Percocet 5-325 Mg) 1 tab Q4H PRN PO 02/16/17 10:30 (Ativan) 1 mg Q6H PRN PO 02/16/17 13:45 02/16/17 14:20 A/P Assessment and Plan 1. Sepsis: Temp 99.7, HR 112, Lactic Acid 2.7, WBC 11.7, Source-UTI. S/p Blood/Urine Cultures, IV Rocephin in ER. Follow up cultures, continue IV Abx. Repeat Lactate 1.4. CXR w/ no acute findings. Leukocytosis improving from 11.7 to 8.9 , blood culture and Urine culture is negative, I think his symptomatology was related to his Primary Pathology and treatment with Radiation therapy. 2. UTI: U/a w/ UTI. Urine culture negative do not continue antibiotics by now. 3. Bladder CA: currently undergoing Radiation in [place], started 2wks ago , progressive weakness/deconditioning. Follow up w/ Oncology as scheduled. tomorrow will follow with Radiation specialist. 4. Right Hip Pain: progressive Right Hip Pain x2 wks, roommate reports decreased mobility due to pain. X-ray w/ no acute findings, images reviewed by me. Analgesics as needed, PT for eval/tx. 5. Tobacco Abuse: Pt counselled. Ativan/NicoDerm prn if needed. strongly recommended to stop smoking. DVT Prophylaxis: SCD/Teds. Social work for d/c planning as needed. discussed with nurse Miss Lira, patient and his Son Mr. Arturo Nicholson. stable to discharge Discharge Planning Discharge home on [facility] as per PT as needed. Morris Watson MD Feb 17, 2017 09:32
--- NOTE | 2017-02-17 11:07 | HHI.DS ---
Discharge Summary Admission Date Feb 15, 2017 at 21:24 Discharge Date: Feb 17, 2017 Admitting Diagnosis Sepsis, UTI (1) Sepsis ICD Code: A41.9 - Sepsis, unspecified organism Diagnosis: Principal Status: Acute (2) UTI (urinary tract infection) ICD Code: N39.0 - Urinary tract infection, site not specified Diagnosis: Principal Status: Acute (3) Bladder cancer ICD Code: C67.9 - Malignant neoplasm of bladder, unspecified Diagnosis: Principal (4) Hip pain, right ICD Code: M25.551 - Pain in right hip Diagnosis: Principal (5) Tobacco abuse ICD Code: Z72.0 - Tobacco use Diagnosis: Principal Procedures None Brief History - From Admission This is a 56-year-old male with PMH of Metastatic Bladder CA, Tobacco Abuse and COPD who presented to the ER with complaints of hip pain in addition to persistent episodes of nausea and vomiting. Pt recently started Radiation Therapy 2wks ago, states symptoms have been getting progressively worse since then. Reports subjective fevers, chills. On arrival, BP 123/87, HR 117, O2 sat 99% on RA, Temp 99.7. WBC 11.7. BUN 25. Lactic Acid 2.7. UA positive for UTI. CXR with no acute findings. Pelvis X-ray normal. S/p Blood/Urine Cultures and IV Rocephin in ER. CBC/BMP: 02/16/17 0558 02/16/17 0558 Significant Findings Laboratory Tests Test 02/15/17 19:16 02/15/17 22:39 02/16/17 05:58 White Blood Count 11.7 TH/MM3 (4.0-11.0) Red Blood Count 3.47 MIL/MM3 (4.50-5.90) 3.15 MIL/MM3 (4.50-5.90) Hemoglobin 10.2 GM/DL (13.0-17.0) 9.5 GM/DL (13.0-17.0) Hematocrit 32.8 % (39.0-51.0) 30.2 % (39.0-51.0) Mean Corpuscular Hemoglobin Concent 31.2 % (32.0-36.0) 31.4 % (32.0-36.0) Red Cell Distribution Width 17.8 % (11.6-17.2) 18.3 % (11.6-17.2) Neutrophils (%) (Auto) 87.3 % (16.0-70.0) 88.7 % (16.0-70.0) Lymphocytes (%) (Auto) 6.9 % (9.0-44.0) 7.3 % (9.0-44.0) Neutrophils # (Auto) 10.2 TH/MM3 (1.8-7.7) 7.9 TH/MM3 (1.8-7.7) Lymphocytes # (Auto) 0.8 TH/MM3 (1.0-4.8) 0.7 TH/MM3 (1.0-4.8) Neutrophils % (Manual) 83 % (16-70) Lymphocytes % 8 % (9-44) Neutrophils # (Manual) 10.3 TH/MM3 (1.8-7.7) Toxic Granulation 1+ (NORMAL) Tear Drop Cells 1+ (NORMAL) Ovalocytes 1+ (NORMAL) Urine Protein 30 mg/dL (NEG-TRACE) Urine Occult Blood MOD (NEG) Urine Leukocyte Esterase SMALL (NEG) Urine RBC 27 /hpf (0-3) Urine WBC 8 /hpf (0-5) Urine Mucus FEW /lpf (OCC) Blood Urea Nitrogen 25 MG/DL (7-18) Albumin 2.6 GM/DL (3.4-5.0) 2.3 GM/DL (3.4-5.0) Calcium Level 8.0 MG/DL (8.5-10.1) 7.6 MG/DL (8.5-10.1) Aspartate Amino Transf (AST/SGOT) 60 U/L (15-37) 64 U/L (15-37) Alanine Aminotransferase (ALT/SGPT) 89 U/L (12-78) 83 U/L (12-78) Total Bilirubin 1.1 MG/DL (0.2-1.0) Sodium Level 132 MEQ/L (136-145) 135 MEQ/L (136-145) Lactic Acid Level 2.7 mmol/L (0.4-2.0) Creatinine 0.55 MG/DL (0.60-1.30) Imaging Last Impressions Chest X-Ray 02/15/17 1823 Signed Impressions: Service Date/Time: Wednesday, February 15, 2017 18:27 - CONCLUSION: No evidence of acute cardiopulmonary disease. Chaka Hearn MD Pelvis X-Ray 02/15/17 0000 Signed Impressions: Service Date/Time: Wednesday, February 15, 2017 18:25 - CONCLUSION: Radiographic appearance of the bony pelvis within normal limits. Chaka Hearn MD PE at Discharge PE: Alert and oriented x 3. GENERAL: Middle-aged male in no acute distress. HEENT: PERRLA, EOMI. No scleral icterus or conjunctival pallor. No lid lag or facial droop. CARDIOVASCULAR: Regular rate and rhythm. No obvious murmurs to auscultation. No chest tenderness to palpation. RESPIRATORY: No obvious rhonchi or wheezing. Clear to auscultation. Breath sounds equal bilaterally. GASTROINTESTINAL: Abdomen soft, non-tender, nondistended. BS normal. MUSCULOSKELETAL: Extremities without clubbing, cyanosis, or edema. No obvious deformities. NEUROLOGICAL: Awake, alert and oriented x4. No focal neurologic deficits. Moving both upper and lower extremities spontaneously. Hospital Course This is a pleasant 56 y/o male with Metastatic Bladder Cancer,. Tobacco abuse, COPD who came to ER wtih Hip pain in addition to persistent episodes of nausea and Vomit, two weeks ago started Radiation therapy, reported subjective fever and chills, Lactic Acid 2.7. UA positive for UTI. CXR with no acute findings. Pelvis X-ray normal. S/p Blood/Urine Cultures and IV Rocephin in ER. 02/16: Seen in his bedroom and improving condition, but states he takes Percocet at home for pain and will need to continue his home medicines, encourage ambulation to avoid complications, also he states has Occasional hematuria. 02/17: Seen in his bedroom in the presence of his Son Mr. Arturo Nicholson he is stable has to go to his Primary Radiation specialist tomorrow morning he states when he goes for this kind of treatment he feels bad and is planning to hold on his therapy for a while until he gets better, his urine culture was negative, will not give more antibiotics by now, recommended to continue hydration at home and good nutrition and stop smoking he continue smoking one pack of cigarettes daily. no nausea vomit or diarrhea, his Overall Prognosis is Poor. Assessment and Plan 1. Sepsis: Temp 99.7, HR 112, Lactic Acid 2.7, WBC 11.7, Source-UTI. S/p Blood/Urine Cultures, IV Rocephin in ER. Follow up cultures, continue IV Abx. Repeat Lactate 1.4. CXR w/ no acute findings. Leukocytosis improving from 11.7 to 8.9 , blood culture and Urine culture is negative, I think his symptomatology was related to his Primary Pathology and treatment with Radiation therapy. 2. UTI: U/a w/ UTI. Urine culture negative do not continue antibiotics by now. 3. Bladder CA: currently undergoing Radiation in [place], started 2wks ago , progressive weakness/deconditioning. Follow up w/ Oncology as scheduled. tomorrow will follow with Radiation specialist. 4. Right Hip Pain: progressive Right Hip Pain x2 wks, roommate reports decreased mobility due to pain. X-ray w/ no acute findings, images reviewed by me. PT recommended to go to Home with [facility] for PT also will ask for Nurse. 5. Tobacco Abuse: Pt counselled. Ativan/NicoDerm prn if needed. strongly recommended to stop smoking. 6. Non compliant patient he has Urinary bladder cancer and continue smoking one pack per day His Prognosis is Poor longterm also he is waited to come back to ER due to his outpatient management he gets dehydrated and weak, nauseated and vomit. DVT Prophylaxis: SCD/Teds. Social work for d/c planning as needed. discussed with nurse Miss Lira, patient and his Son Mr. Arturo Nicholson. stable to discharge Discharge Planning Discharge home on [facility] as per PT as needed. Pt Condition on Discharge: Good Discharge Disposition: Disch w/ Home Health Serv Discharge Time: <= 30 minutes Discharge Instructions DIET: Follow Instructions for: As Tolerated, No Restrictions Activities you can perform: Regular-No Restrictions Morris Watson MD Feb 17, 2017 11:07
--- NOTE | 2017-02-17 11:09 | HHI.FF ---
Face to Face Verification Diagnosis: (1) Sepsis (2) Tobacco abuse (3) Hip pain, right (4) UTI (urinary tract infection) (5) Bladder cancer Physical Therapy Order: Evaluate and Treat, Improve ambulation, Strength and gait training Home Health Nursing Order: Medical education Signs/symptoms of disease process Nursing assessment with vital signs I have seen patient Isaiah Nicholson on 02/17/17. My clinical findings support the need for the requested home health care services because: Ltd mobility - disease progression I certify that my clinical findings support that this patient is homebound because: Unsafe to leave home unassisted Morris Watson MD Feb 17, 2017 11:09
[2017-02-17 11:44] VITALS: BP 144/72; PULSE 75; RESP 18; TEMP 98.7; O2SAT 99
== END 2017-02-17 12:33 | disposition home or self-care (01) | DRG 872 ==
LOC: NEPD 17:12 → NEDA 21:24 → N06B 22:50
PROVIDERS: ADMIT Internal Medicine; ATTEND Internal Medicine
DX: A41.9 Sepsis, unspecified organism (principal); C79.51 Secondary malignant neoplasm of bone; C67.9 Malignant neoplasm of bladder, unspecified; N39.0 Urinary tract infection, site not specified; J44.9 Chronic obstructive pulmonary disease, unspecified; G89.29 Other chronic pain; M25.551 Pain in right hip; F17.210 Nicotine dependence, cigarettes, uncomplicated; Z91.19 Patient's noncompliance with other medical treatment and regimen
CPT/HCPCS: 71010; 72170; 80053; 81001; 83605; 85007; 85025; 85027; 87040; 87086; 96361; 96374; J0696; J1170; J2270; J2405; J7030